=== PATIENT | female | born 1985 | race African-American/Black ===

== ENCOUNTER 2021-04-29 09:01 | Emergency (ER) | payer OTHER ==
[2021-04-29 09:13] VITALS: RESP 18; TEMP 98.7
--- NOTE | 2021-04-29 09:35 | ED ---
Back Pain HPI - General Chief Complaint: Back Pain/Injury Stated Complaint: Back Pain/Injury Time Seen by Provider: 04/29/21 09:20 Source: patient, RN notes reviewed Limitations: no limitations - History of Present Illness Initial Comments: Patient is a 35-year-old female presented to the ED for chronic back pain. Patient states that when she was at home today she walked over to her TV bent over when her back locked up. Patient states that she had to stay there for a while and was eventually able to make it to the couch where she rested for 20 minutes, was then able to drive to ED. Patient states she has known history of degenerative disc disease at L5-S1 and is currently not being treated with any medication for issue. Patient describes severe 10 out of 10 back pain midline at the lumbosacral region. - Related Data Previous Rx's Medication Instructions Recorded Ibuprofen [Motrin] 600 mg PO Q8HR PRN #20 tab 04/29/21 methocarbamoL [Robaxin] 500 mg PO TID PRN #15 tab 04/29/21 predniSONE 50 mg PO DAILY #5 tab 04/29/21 Allergies Allergy/AdvReac Type Severity Reaction Status Date / Time acetaminophen Allergy Rash/Hives Verified 04/29/21 10:43 Review of Systems ROS Statement: Those systems with pertinent positive or pertinent negative responses have been documented in the HPI. ROS Other: All systems not noted in ROS Statement are negative. Past Medical History Additional Past Medical History / Comment(s): lumbar issues History of Any Multi-Drug Resistant Organisms: None Reported Past Surgical History: Hernia Repair, Tubal Ligation Past Psychological History: Bipolar Smoking Status: Never smoker Past Alcohol Use History: None Reported Past Drug Use History: None Reported General Exam Limitations: no limitations General appearance: alert, in no apparent distress Neck exam: Present: normal inspection, full ROM. Absent: tenderness, meningismus, lymphadenopathy Respiratory exam: Present: normal lung sounds bilaterally. Absent: respiratory distress, wheezes, rales, rhonchi, stridor Cardiovascular Exam: Present: regular rate, normal rhythm, normal heart sounds. Absent: systolic murmur, diastolic murmur, rubs, gallop, clicks GI/Abdominal exam: Present: soft, normal bowel sounds. Absent: distended, tenderness, guarding, rebound, rigid Extremities exam: Present: normal inspection, full ROM, normal capillary refill. Absent: tenderness, pedal edema, joint swelling, calf tenderness Back exam: Present: normal inspection, full ROM, tenderness (Severe lumbosacral), paraspinal tenderness. Absent: vertebral tenderness Neurological exam: Present: alert, oriented X3, reflexes normal. Absent: motor sensory deficit Skin exam: Present: warm, dry, intact, normal color. Absent: rash Course Vital Signs 04/29/21 09:10 Temperature 98.7 F Pulse Rate 78 Respiratory 18 Rate Blood Pressure 131/86 O2 Sat by Pulse 100 Oximetry Medical Decision Making - Medical Decision Making X-ray shows degenerative changes L4-L5 L5-S1 with no red flag symptoms. Patient has known of this history. Patient had acute exacerbation of discharged in stable condition she is improved at this time return parameters were discussed. Disposition Clinical Impression: Lumbar degenerative disc disease Disposition: HOME SELF-CARE Condition: Stable Instructions (If sedation given, give patient instructions): Acute Low Back Roland n (ED) Additional Instructions: Please return to the Emergency Department if symptoms worsen or any other concerns. Prescriptions: Ibuprofen [Motrin] 600 mg PO Q8HR PRN #20 tab PRN Reason: Pain predniSONE 50 mg PO DAILY #5 tab methocarbamoL [Robaxin] 500 mg PO TID PRN #15 tab PRN Reason: muscle spasms Is patient prescribed a controlled substance at d/c from ED?: No Referrals: Quinn Pierce MD [Primary Care Provider] - 1-2 days Time of Disposition: 11:10
[2021-04-29] MEDS ORDERED: KETOROLAC 15 MG/ML 1 ML VIAL IM STA (09:36)
--- NOTE | 2021-04-29 10:04 | XR ---
EXAM TYPE: LUMBAR SPINE X RAY SERIES COMPARISON: NONE HISTORY: Pain TECHNIQUE: 4 views are submitted. FINDINGS: Alignment is anatomic. The pedicles are intact. The transverse processes are intact. There is no s pondylolysis or spondylolisthesis. Disc space narrowing L4-5 and L5-S1. IMPRESSION: 1. Degenerative disc disease L4-5 and L5-S1 consider follow-up MRI.
[2021-04-29 11:34] VITALS: BP 134/78; PULSE 84
== END 2021-04-29 11:34 | disposition home or self-care (01) ==
LOC: EC 09:01
DX: M51.36 Other intervertebral disc degeneration, lumbar region (principal); G89.29 Other chronic pain; F31.9 Bipolar disorder, unspecified; Z98.51 Tubal ligation status
CPT/HCPCS: 99283 ×2; 96372 ×2; 72110; J1885

== ENCOUNTER 2021-12-07 03:52 | Emergency (ER) | payer OTHER ==
[2021-12-07 03:59] VITALS: BP 122/82; PULSE 92; RESP 16; TEMP 98.4
[2021-12-07] MEDS ORDERED: CEPHALEXIN 500 MG CAP PO STA (04:17)
[2021-12-07] MEDS ORDERED: CEPHALEXIN 500MG STARTER PACK 4 CAP BTL PO STA (04:17)
--- NOTE | 2021-12-07 04:17 | ED ---
Wound/Laceration HPI - General Chief Complaint: Wound/Laceration Stated Complaint: Right hand Laceration Time Seen by Provider: 12/07/21 04:04 Source: patient Mode of arrival: ambulatory Limitations: no limitations - Related Data Previous Rx's Medication Instructions Recorded Ibuprofen [Motrin] 600 mg PO Q8HR PRN #20 tab 04/29/21 methocarbamoL [Robaxin] 500 mg PO TID PRN #15 tab 04/29/21 predniSONE 50 mg PO DAILY #5 tab 04/29/21 Allergies Allergy/AdvReac Type Severity Reaction Status Date / Time acetaminophen Allergy Rash/Hives Verified 12/07/21 03:56 Review of Systems ROS Statement: Those systems with pertinent positive or pertinent negative responses have been documented in the HPI. ROS Other: All systems not noted in ROS Statement are negative. Past Medical History Additional Past Medical History / Comment(s): lumbar issues History of Any Multi-Drug Resistant Organisms: None Reported Past Surgical History: Hernia Repair, Tubal Ligation Past Psychological History: Bipolar Smoking Status: Never smoker Past Alcohol Use History: None Reported Past Drug Use History: None Reported General Exam Limitations: no limitations Course Vital Signs 12/07/21 03:56 Temperature 98.4 F Pulse Rate 92 Respiratory 16 Rate Blood Pressure 122/82 O2 Sat by Pulse 98 Oximetry Disposition Clinical Impression: Laceration Condition: Good Instructions (If sedation given, give patient instructions): Laceration (ED), Acute Wound Care (ED) Is patient prescribed a controlled substance at d/c from ED?: No Referrals: Quinn Pierce MD [Primary Care Provider] - 1-2 days
--- NOTE | 2021-12-07 04:32 | XR ---
EXAMINATION TYPE: XR hand limited RT DATE OF EXAM: 12/07/2021 COMPARISON: NONE HISTORY: Trauma. Pain TECHNIQUE: 2 views FINDINGS: Metacarpals are intact. I see no fracture nor dislocation. Joint spaces are normal. IMPRESSION: Negative right hand exam. No fracture. No sign of foreign body.
== END 2021-12-07 04:56 ==
LOC: EC 03:52
DX: S61.411A Laceration without foreign body of right hand, initial encounter (principal)

== ENCOUNTER 2022-04-01 14:19 | Emergency (ER) | payer OTHER ==
[2022-04-01 14:34] VITALS: TEMP 98.3
[2022-04-01] MEDS ORDERED: MORPHINE SULFATE 4 MG/ML SYRINGE IVP STA (15:53)
--- NOTE | 2022-04-01 15:54 | US ---
EXAMINATION TYPE: US venous doppler duplex LE LT DATE OF EXAM: 04/01/2022 3:44 PM COMPARISON: NONE CLINICAL HISTORY: swelling and pain. SIDE PERFORMED: TECHNIQUE: The lower extremity deep venous system is examined utilizing real time linear array sonog arsh with graded compression, doppler sonography and color-flow sonography. VESSELS IMAGED: Common Femoral Vein Deep Femoral Vein Greater Saphenous Vein * Femoral Vein Popliteal Vein Small Saphenous Vein * Proximal Calf Veins (* superficial vessels) Left Leg: Negative for DVT Thrombus in GSV at junction of CFV/GSV 7mm from CFV. IMPRESSION: There is some limited superficial vein thrombosis in the long saphenous vein. No deep vei n thrombosis.
[2022-04-01 16:01] LABS: Basophils % (A) 1 %; Eosinophils # (A) 0.2 k/uL (0-0.7); Eosinophils % (A) 2 %; HCT 32.7 % (34.0-46.0); HGB 10.5 gm/dL (11.4-16.0); Lymphocytes # (A) 2.1 k/uL (1.0-4.8); Lymphocytes % (A) 24 %; MCH 27.6 pg (25.0-35.0); MCHC 32.1 g/dL (31.0-37.0); Mean Platelet Volume 7.7; Monocytes # (A) 0.4 k/uL (0-1.0); Monocytes % (A) 4 %; Neutrophils # (A) 5.9 k/uL (1.3-7.7); Neutrophils % (A) 68 %; Platelet Count 391 k/uL (150-450); RDW 13.5 % (11.5-15.5); WBC 8.6 k/uL (3.8-10.6)
[2022-04-01 16:11] LABS: ALT 12 U/L (4-34); AST 17 U/L (14-36); African American GFR (CKD) >90 (>60 ml/min/1.73 sqM); Albumin 4.2 g/dL (3.5-5.0); Alkaline Phosphatase 83 U/L (38-126); Anion Gap 13 mmol/L; Blood Urea Nitrogen 11 mg/dL (7-17); Calcium 9.5 mg/dL (8.4-10.2); Carbon Dioxide 23 mmol/L (22-30); Chloride 103 mmol/L (98-107); Glucose 91 mg/dL (74-99); Non-African American GFR(CKD) >90 (>60 ml/min/1.73 sqM); Potassium 3.6 mmol/L (3.5-5.1); Sodium 139 mmol/L (137-145); Total Bilirubin 0.4 mg/dL (0.2-1.3); Total Protein 7.6 g/dL (6.3-8.2)
--- NOTE | 2022-04-01 16:17 | XR ---
EXAMINATION TYPE: XR ankle complete LT DATE OF EXAM: 04/01/2022 COMPARISON: NONE HISTORY: Pain TECHNIQUE: 3 views FINDINGS: Ankle mortise is anatomic. There is plantar and Achilles calcaneal spurring. No fracture se en. IMPRESSION: Calcaneal spurring. No fracture.
--- NOTE | 2022-04-01 16:18 | XR ---
EXAMINATION TYPE: XR foot complete LT DATE OF EXAM: 04/01/2022 COMPARISON: NONE HISTORY: Pain and swelling TECHNIQUE: 3 views FINDINGS: There is plantar and Achilles calcaneal spurring. Metatarsals are intact. I see no fracture nor dislocation. Joint spaces are normal IMPRESSION: Calcaneal spurring. No fracture seen.
[2022-04-01] MEDS ORDERED: APIXABAN 5 MG TAB PO STA (16:22)
--- NOTE | 2022-04-01 16:47 | ED ---
Extremity Problem HPI - General Chief complaint: Extremity Problem,Nontraumatic Stated complaint: ankle injury Time Seen by Provider: 04/01/22 14:45 Source: patient Mode of arrival: ambulatory Limitations: no limitations - Related Data Previous Rx's Medication Instructions Recorded Ibuprofen [Motrin] 600 mg PO Q8HR PRN #20 tab 04/29/21 methocarbamoL [Robaxin] 500 mg PO TID PRN #15 tab 04/29/21 predniSONE 50 mg PO DAILY #5 tab 04/29/21 Apixaban [Eliquis Starter Pack 5 - 10 mg PO DIRECTED 30 Days 04/01/22 (for VTE)] #1 each Allergies Allergy/AdvReac Type Severity Reaction Status Date / Time acetaminophen Allergy Rash/Hives Verified 04/01/22 14:34 Review of Systems ROS Statement: Those systems with pertinent positive or pertinent negative responses have been documented in the HPI. ROS Other: All systems not noted in ROS Statement are negative. Past Medical History Additional Past Medical History / Comment(s): lumbar issues History of Any Multi-Drug Resistant Organisms: None Reported Past Surgical History: Hernia Repair, Tubal Ligation Past Psychological History: Bipolar Smoking Status: Never smoker Past Alcohol Use History: None Reported Past Drug Use History: None Reported General Exam Limitations: no limitations Course Vital Signs 04/01/22 14:31 Temperature 98.3 F Pulse Rate 83 Respiratory 16 Rate Blood Pressure 138/82 O2 Sat by Pulse 98 Oximetry Medical Decision Making - Lab Data Result diagrams: 04/01/22 15:54 04/01/22 15:54 Lab Results 04/01/22 04/01/22 Range/Units 15:54 15:54 WBC 8.6 (3.8-10.6) k/uL RBC 3.80 (3.80-5.40) m/uL Hgb 10.5 L (11.4-16.0) gm/dL Hct 32.7 L (34.0-46.0) % MCV 86.0 (80.0-100.0) fL MCH 27.6 (25.0-35.0) pg MCHC 32.1 (31.0-37.0) g/dL RDW 13.5 (11.5-15.5) % Plt Count 391 (150-450) k/uL MPV 7.7 Neutrophils % 68 % Lymphocytes % 24 % Monocytes % 4 % Eosinophils % 2 % Basophils % 1 % Neutrophils # 5.9 (1.3-7.7) k/uL Lymphocytes # 2.1 (1.0-4.8) k/uL Monocytes # 0.4 (0-1.0) k/uL Eosinophils # 0.2 (0-0.7) k/uL Basophils # 0.0 (0-0.2) k/uL Sodium 139 (137-145) mmol/L Potassium 3.6 (3.5-5.1) mmol/L Chloride 103 (98-107) mmol/L Carbon Dioxide 23 (22-30) mmol/L Anion Gap 13 mmol/L BUN 11 (7-17) mg/dL Creatinine 0.55 (0.52-1.04) mg/dL Est GFR (CKD-EPI)AfAm >90 (>60 ml/min/1.73 sqM) Est GFR (CKD-EPI)NonAf >90 (>60 ml/min/1.73 sqM) Glucose 91 (74-99) mg/dL Calcium 9.5 (8.4-10.2) mg/dL Total Bilirubin 0.4 (0.2-1.3) mg/dL AST 17 (14-36) U/L ALT 12 (4-34) U/L Alkaline Phosphatase 83 (38-126) U/L Total Protein 7.6 (6.3-8.2) g/dL Albumin 4.2 (3.5-5.0) g/dL TSH 0.992 (0.465-4.680) mIU/L Disposition Clinical Impression: Superficial thrombophlebitis, Left ankle pain, Leg pain, left Disposition: HOME SELF-CARE Condition: Good Instructions (If sedation given, give patient instructions): Superficial Thrombophlebitis (ED) Additional Instructions: Please take medication as directed. Ice and elevate leg. Follow-up with primary care provider in one to 2 days. Please address with them that you have been diagnosed with superficial thrombophlebitis. Your hemoglobin was 10.5 day. With your fatigue symptoms please let your primary care provider know you have low hemoglobin. Return to the emergency department experience new, concerning, or worsening symptoms, including but not limited to chest pain and shortness of breath. Prescriptions: Apixaban [Eliquis Starter Pack (for VTE)] 5 - 10 mg PO DIRECTED 30 Days #1 each Is patient prescribed a controlled substance at d/c from ED?: No Referrals: Quinn Pierce MD [Primary Care Provider] - 1-2 days
[2022-04-01 17:16] VITALS: BP 125/77; PULSE 77; RESP 18
== END 2022-04-01 17:10 | disposition home or self-care (01) ==
LOC: EC 14:19
DX: I80.02 Phlebitis and thrombophlebitis of superficial vessels of left lower extremity (principal); Z88.6 Allergy status to analgesic agent
CPT/HCPCS: 36415; 80053; 84443; 85025; 73610; 73630; 93971; 99284; 96374; J2270

== ENCOUNTER 2022-04-06 14:54 | Emergency (ER) | payer OTHER ==
[2022-04-06 15:18] VITALS: BP 148/87; PULSE 82; RESP 20; TEMP 98.3
[2022-04-06 15:55] LABS: Basophils % (A) 0 %; Eosinophils # (A) 0.1 k/uL (0-0.7); Eosinophils % (A) 2 %; HCT 29.8 % (34.0-46.0); HGB 9.6 gm/dL (11.4-16.0); Hypochromasia Slight; Lymphocytes # (A) 2.2 k/uL (1.0-4.8); Lymphocytes % (A) 30 %; MCHC 32.4 g/dL (31.0-37.0); MCV 86.4 fL (80.0-100.0); Mean Platelet Volume 8.3; Monocytes # (A) 0.3 k/uL (0-1.0); Monocytes % (A) 4 %; Neutrophils # (A) 4.5 k/uL (1.3-7.7); Neutrophils % (A) 62 %; Platelet Count 388 k/uL (150-450); RBC 3.44 m/uL (3.80-5.40); RDW 13.7 % (11.5-15.5); WBC 7.2 k/uL (3.8-10.6)
[2022-04-06 15:57] LABS: Appearance,Urine Clear (Clear); Bilirubin,Urine Negative (Negative); Blood,Urine Negative (Negative); Color,Urine Yellow; Glucose,Urine (UA) Negative (Negative); Ketones,Urine Trace (Negative); Leukocyte Esterase,Urine Trace (Negative); Mucus,Urine Occasional /hpf; Nitrite,Urine Negative (Negative); Protein,Urine Negative (Negative); RBC,Urine 2 /hpf (0-5); Specific Gravity,Urine 1.019 (1.001-1.035); Squamous Epithelial Cell,Urine 6 /hpf (0-4); Urobilinogen,Urine <2.0 mg/dL (<2.0); WBC,Urine 1 /hpf (0-5)
[2022-04-06 16:07] LABS: ALT 11 U/L (4-34); AST 18 U/L (14-36); African American GFR (CKD) >90 (>60 ml/min/1.73 sqM); Albumin 4.3 g/dL (3.5-5.0); Alkaline Phosphatase 80 U/L (38-126); Anion Gap 13 mmol/L; Blood Urea Nitrogen 16 mg/dL (7-17); Calcium 9.3 mg/dL (8.4-10.2); Carbon Dioxide 23 mmol/L (22-30); Chloride 103 mmol/L (98-107); Glucose 84 mg/dL (74-99); Magnesium 1.9 mg/dL (1.6-2.3); Non-African American GFR(CKD) >90 (>60 ml/min/1.73 sqM); Potassium 3.4 mmol/L (3.5-5.1); Sodium 139 mmol/L (137-145); Total Bilirubin 0.3 mg/dL (0.2-1.3); Total Protein 7.5 g/dL (6.3-8.2)
[2022-04-06 16:21] LABS: INR 1.1 (<1.2); Partial Thromboplastin Time 29.8 sec (22.0-30.0); Prothrombin Time 11.4 sec (9.0-12.0)
== END 2022-04-06 17:50 | disposition left against medical advice (07) ==
LOC: EC 14:54
DX: Z53.21 Procedure and treatment not carried out due to patient leaving prior to being seen by health care provider (principal)
CPT/HCPCS: 36415; 80053; 81001; 83735; 84484; 85025; 85379; 85610; 85730; 93005; 99499

== ENCOUNTER 2022-10-26 15:41 | Emergency (ER) | payer OTHER ==
--- NOTE | 2022-10-26 18:56 | ED ---
General Adult HPI - General Source: patient, RN notes reviewed Mode of arrival: ambulatory Limitations: no limitations <Karolyn Galicia - Last Filed: 10/26/22 19:11> <Shay Disla - Last Filed: 10/26/22 23:50> - General Chief complaint: ENT Stated complaint: mouth numbness Time Seen by Provider: 10/26/22 17:44 - History of Present Illness Initial comments: 37-year-old female presents to the emergency department with chief complaint of lip and tip of the tongue tingling. She states that this started 3 days ago. She states it is worse when she is moving around. She states that she gets a "weird" sensation when she walks around at work but it is only when she turns quickly. She also reports cough and runny nose that has been going on for the same amount of time. She is eating and drinking normally. Denies fever, sore throat. Past medical history includes bells palsy and superficial thrombophlebitis. She states that she is on Eliquis. (Karolyn Galicia) - Related Data Previous Rx's Medication Instructions Recorded Ibuprofen [Motrin] 600 mg PO Q8HR PRN #20 tab 04/29/21 methocarbamoL [Robaxin] 500 mg PO TID PRN #15 tab 04/29/21 predniSONE 50 mg PO DAILY #5 tab 04/29/21 Apixaban [Eliquis Starter Pack 5 - 10 mg PO DIRECTED 30 Days 04/01/22 (for VTE)] #1 each Ketorolac [Toradol] 10 mg PO Q8HR PRN #21 tab 04/01/22 Allergies Allergy/AdvReac Type Severity Reaction Status Date / Time acetaminophen Allergy Rash/Hives Verified 10/26/22 15:54 Review of Systems ROS Other: All systems not noted in ROS Statement are negative. <Karolyn Galicia - Last Filed: 10/26/22 19:11> ROS Other: All systems not noted in ROS Statement are negative. <Shay Disla - Last Filed: 10/26/22 23:50> ROS Statement: Those systems with pertinent positive or pertinent negative responses have been documented in the HPI. Past Medical History Past Medical History: Deep Vein Thrombosis (DVT) Additional Past Medical History / Comment(s): lumbar issues DVT History of Any Multi-Drug Resistant Organisms: None Reported Past Surgical History: Hernia Repair, Tubal Ligation Past Psychological History: Bipolar Smoking Status: Never smoker Past Alcohol Use History: None Reported Past Drug Use History: None Reported <Karolyn Galicia - Last Filed: 10/26/22 19:11> General Exam Limitations: no limitations General appearance: alert, in no apparent distress Head exam: Present: atraumatic, normocephalic, normal inspection Eye exam: Present: normal appearance, PERRL, EOMI. Absent: scleral icterus, conjunctival injection, periorbital swelling ENT exam: Present: normal exam, mucous membranes moist Neck exam: Present: normal inspection, full ROM. Absent: tenderness, meningismus, lymphadenopathy Respiratory exam: Present: normal lung sounds bilaterally. Absent: respiratory distress, wheezes, rales, rhonchi, stridor Cardiovascular Exam: Present: regular rate, normal rhythm, normal heart sounds. Absent: systolic murmur, diastolic murmur, rubs, gallop, clicks Extremities exam: Present: normal inspection, full ROM, normal capillary refill. Absent: tenderness, pedal edema, joint swelling, calf tenderness Back exam: Present: normal inspection, full ROM. Absent: tenderness Neurological exam: Present: alert, oriented X3, CN II-XII intact, normal gait Psychiatric exam: Present: normal affect, normal mood Skin exam: Present: warm, dry, intact, normal color. Absent: rash <Karolyn Galicia - Last Filed: 10/26/22 19:11> General appearance: alert, in no apparent distress Head exam: Present: atraumatic, normocephalic, normal inspection Eye exam: Present: normal appearance, PERRL, EOMI. Absent: scleral icterus, co njunctival injection, periorbital swelling ENT exam: Present: normal exam, mucous membranes moist Neck exam: Present: normal inspection. Absent: tenderness, meningismus, lymphadenopathy Respiratory exam: Present: normal lung sounds bilaterally. Absent: respiratory distress, wheezes, rales, rhonchi, stridor Cardiovascular Exam: Present: regular rate, normal rhythm, normal heart sounds. Absent: systolic murmur, diastolic murmur, rubs, gallop, clicks GI/Abdominal exam: Present: soft, normal bowel sounds. Absent: distended, tenderness, guarding, rebound, rigid Extremities exam: Present: normal inspection, full ROM, normal capillary refill. Absent: tenderness, pedal edema, joint swelling, calf tenderness Back exam: Present: normal inspection Neurological exam: Present: alert, oriented X3, CN II-XII intact Psychiatric exam: Present: normal affect, normal mood Skin exam: Present: warm, dry, intact, normal color. Absent: rash <Shay Disla - Last Filed: 10/26/22 23:50> Course <Shay Disla - Last Filed: 10/26/22 23:50> Vital Signs 10/26/22 10/26/22 10/26/22 15:51 16:58 19:00 Temperature 98.5 F 98.2 F 98.2 F Pulse Rate 86 86 101 H Pulse Rate [ Left Supine] Pulse Rate [ Right Sitting] Pulse Rate [ Right Standing] Respiratory 20 20 20 Rate Blood Pressure 132/81 113/77 175/91 Blood Pressure [Left Arm Supine] Blood Pressure [Right Arm Sitting] Blood Pressure [Right Arm Standing] O2 Sat by Pulse 100 99 100 Oximetry 10/26/22 10/26/22 19:20 21:36 Temperature 98.2 F 97.6 F Pulse Rate 78 Pulse Rate [ 101 H Left Supine] Pulse Rate [ 79 Right Sitting] Pulse Rate [ 86 Right Standing] Respiratory 14 Rate Blood Pressure 119/69 Blood Pressure 175/91 [Left Arm Supine] Blood Pressure 134/88 [Right Arm Sitting] Blood Pressure 147/98 [Right Arm Standing] O2 Sat by Pulse 97 Oximetry - Reevaluation(s) Reevaluation #1: 10/26/22 23:49 No change in symptoms here in the ER (Shay Disla) Reevaluation #2: 10/26/22 23:49 patient informed of results and questions Patient is asking for discharge home (Shay Disal) Medical Decision Making <Karolyn Galicia - Last Filed: 10/26/22 19:11> <Shay Disla - Last Filed: 10/26/22 23:50> - Medical Decision Making Was pt. sent in by a medical professional or institution (, PA, SILK SCREEN ETCHER, urgent care, hospital, or usp...) When possible be specific @ -[No] Did you speak to anyone other than the patient for history (EMS, parent, family, police, friend...)? What history was obtained from this source @ -[No] Did you review nursing and triage notes (agree or disagree)? Why? @ -[I reviewed and agree with nursing and triage notes] Were old charts reviewed (outside hosp., previous admission, EMS record, old EKG, old radiological studies, urgent care reports/EKG's, usp records)? Report findings @ -[No old charts were reviewed] Differential Diagnosis (chest pain, altered mental status, abdominal pain women, abdominal pain men, vaginal bleeding, weakness, fever, dyspnea, syncope, headache, dizziness, GI bleed, back pain, seizure, CVA, palpatations, mental health, musculoskeletal)? @ -Covid, paraesthesias, neck strain, viral URI, this list is not all inclusive EKG interpreted by me (3pts min.). @ -[] X-rays interpreted by me (1pt min.). @ -[None done] CT interpreted by me (1pt min.). @ -[None done] U/S interpreted by me (1pt. min.). @ -[None done] What testing was considered but not performed or refused? (CT, X-rays, U/S, labs)? Why? @ -[None] What meds were considered but not given or refused? Why? @ -[None] Did you discuss the management of the patient with other professionals (professionals i.e. , PA, SILK SCREEN ETCHER, lab, RT, psych nurse, social media job titles, foreign exchange services manager, teacher, parachute/combatant diver officer, caseworker protective services)? Give summary @ -[No] Was smoking cessation discussed for >3mins.? @ -[No] Was critical care preformed (if so, how long)? @ -[No] Were there social determinants of health that impacted care today? How? (Homelessness, low income, unemployed, alcoholism, drug addiction, transportation, low edu. Level, literacy, decrease access to med. care, usp, rehab)? @ -[No] Was there de-escalation of care discussed even if they declined (Discuss DNR or withdrawal of care, Hospice)? DNR status @ -[No] What co-morbidities impacted this encounter? (DM, HTN, Smoking, COPD, CAD, Cancer, CVA, ARF, Chemo, Hep., AIDS, mental health diagnosis, sleep apnea, morbid obesity)? @ -[None] Was patient admitted / discharged? Hospital course, mention meds given and route , prescriptions, significant lab abnormalities, going to OR and other pertinent info. @ -[patient presented to the emergency department with chief complaint of tingling to her lips and tip of her tongue x3days. She also reports a cough for the same duration. patient signed out to Dr. Disla. EKG, orthostatics, covid test pending at time of sign out.] Undiagnosed new problem with uncertain prognosis? @ -[No] Drug Therapy requiring intensive monitoring for toxicity (Heparin, Nitro, Insulin, Cardizem)? @ -[No] Were any procedures done? @ -[No] Diagnosis/symptom? @ -[paraesthesias] Acute, or Chronic, or Acute on Chronic? @ -[acute] Uncomplicated (without systemic symptoms) or Complicated (systemic symptoms)? @ -[uncomplicated] Side effects of treatment? @ -[No] Exacerbation, Progression, or Severe Exacerbation? @ -[No] Poses a threat to life or bodily function? How? (Chest pain, [place], [place], pneumonia, PE, COPD, DKA, ARF, appy, cholecystitis, CVA, Diverticulitis, Homicidal, Suicidal, threat to staff... and all critical care pts) @ -[No] (Karolyn Galicia) 37 female to the emergency department for evaluation patient presents today for nonspecific paresthesias may have prior diagnosis of MS. She also complained of headache CT brain is negative, cough acute on chronic chest x-rays negative. Patient can be discharged home (Shay Disla) - Lab Data Lab Results 10/26/22 Range/Units 19:15 Influenza Type A (PCR) Not Detected (Not Detectd) Influenza Type B (PCR) Not Detected (Not Detectd) RSV (PCR) Not Detected (Not Detectd) SARS-CoV-2 (PCR) Not Detected (Not Detectd) Disposition <Karolyn Galicia - Last Filed: 10/26/22 19:11> Is patient prescribed a controlled substance at d/c from ED?: No Time of Disposition: 21:00 <Shay Disla - Last Filed: 10/26/22 23:50> Clinical Impression: Paresthesia, Cough, Dizziness Disposition: HOME SELF-CARE Condition: Stable Instructions (If sedation given, give patient instructions): Multiple Sclerosis (DC), Paresthesia (ED) Additional Instructions: Please return to the Emergency Department if symptoms worsen or any other concerns. Referrals: Quinn Pierce MD [Primary Care Provider] - 1-2 days
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
--- NOTE | 2022-10-26 21:25 | XR ---
EXAMINATION TYPE: XR chest 1V portable DATE OF EXAM: 10/26/2022 COMPARISON: NONE HISTORY: Cough. TECHNIQUE: Single frontal view of the chest is obtained. FINDINGS: There is no suspicious focal air space opacity, pleural effusion, or pneumothorax seen. T he cardiac silhouette size is within normal limits. Overlying breast expanders are seen. The osseous structures are intact. IMPRESSION: No acute pulmonary process.
[2022-10-26 21:46] VITALS: BP 119/69; PULSE 78; RESP 14; TEMP 97.6
== END 2022-10-26 21:46 | disposition home or self-care (01) ==
LOC: EC 15:41
DX: R20.2 Paresthesia of skin (principal); R05.9 Cough, unspecified; R42 Dizziness and giddiness; Z20.822 Contact with and (suspected) exposure to COVID-19; Z88.6 Allergy status to analgesic agent
CPT/HCPCS: 70450; 71045; 87636; 99285

== ENCOUNTER 2022-12-10 03:33 | Emergency (ER) | payer OTHER ==
[2022-12-10 03:42] VITALS: RESP 18
[2022-12-10] MEDS ORDERED: LIDOCAINE 1% INJ 10MG/ML (30 ML VIAL-PF) SQ STA (04:49)
[2022-12-10] MEDS ORDERED: IBUPROFEN 400 MG TAB PO STA (05:04)
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
--- NOTE | 2022-12-10 06:46 | ED ---
Wound/Laceration HPI - General Source: patient Mode of arrival: ambulatory Limitations: no limitations <Johanny Thorpe - Last Filed: 12/10/22 06:47> <Henry Nguyen - Last Filed: 12/10/22 07:11> - General Chief Complaint: Wound/Laceration Stated Complaint: Lip Injury Time Seen by Provider: 12/10/22 05:03 - Related Data Previous Rx's Medication Instructions Recorded Ibuprofen [Motrin] 600 mg PO Q8HR PRN #20 tab 04/29/21 methocarbamoL [Robaxin] 500 mg PO TID PRN #15 tab 04/29/21 predniSONE 50 mg PO DAILY #5 tab 04/29/21 Apixaban [Eliquis Starter Pack 5 - 10 mg PO DIRECTED 30 Days 04/01/22 (for VTE)] #1 each Ketorolac [Toradol] 10 mg PO Q8HR PRN #21 tab 04/01/22 Allergies Allergy/AdvReac Type Severity Reaction Status Date / Time acetaminophen Allergy Rash/Hives Verified 12/10/22 03:37 Review of Systems ROS Other: All systems not noted in ROS Statement are negative. <Johanny Thorpe - Last Filed: 12/10/22 06:47> ROS Other: All systems not noted in ROS Statement are negative. <Henry Nguyen - Last Filed: 12/10/22 07:11> ROS Statement: Those systems with pertinent positive or pertinent negative responses have been documented in the HPI. Past Medical History Past Medical History: Deep Vein Thrombosis (DVT) Additional Past Medical History / Comment(s): lumbar issues DVT History of Any Multi-Drug Resistant Organisms: None Reported Past Surgical History: Hernia Repair, Tubal Ligation Past Psychological History: Bipolar Smoking Status: Never smoker Past Alcohol Use History: None Reported Past Drug Use History: None Reported <Johanny Thorpe - Last Filed: 12/10/22 06:47> General Exam Limitations: no limitations <Johanny Thorpe - Last Filed: 12/10/22 06:47> Course Vital Signs 12/10/22 03:38 Temperature 98.3 F Pulse Rate 111 H Respiratory 18 Rate Blood Pressure 137/98 O2 Sat by Pulse 100 Oximetry Procedures - Laceration Laceration #1 Consent Obtained: verbal consent Indication: laceration Site: lip Size (cm): 3 Description: linear, stellate Depth: simple, single layer Anesthetic Used: lidocaine 1% Anesthesia Technique: local infiltration Amount (mls): 4 Pre-repair: wound explored Type of Sutures: vicryl Size of Sutures: 5-0 Number of Sutures: 4 Technique: simple, interrupted Patient Tolerated Procedure: well, no complications <Johanny Thorpe - Last Filed: 12/10/22 06:47> Disposition <Johanny Thorpe - Last Filed: 12/10/22 06:47> Is patient prescribed a controlled substance at d/c from ED?: No <Henry Nguyen - Last Filed: 12/10/22 07:11> Clinical Impression: Laceration, Facial contusion Disposition: HOME SELF-CARE Condition: Good Instructions (If sedation given, give patient instructions): Care For Your Absorbable Stitches (ED), Laceration (ED), Contusion in Adults (ED), Nasal Fracture (ED) Referrals: Quinn Pierce MD [Primary Care Provider] - 1-2 days
[2022-12-10 07:52] VITALS: BP 133/90; PULSE 93; TEMP 98.6
== END 2022-12-10 07:50 | disposition home or self-care (01) ==
LOC: EC 03:33
DX: S01.81XA Laceration without foreign body of other part of head, initial encounter (principal); Z86.718 Personal history of other venous thrombosis and embolism; Z86.59 Personal history of other mental and behavioral disorders; Z88.8 Allergy status to other drugs, medicaments and biological substances; X58.XXXA Exposure to other specified factors, initial encounter
CPT/HCPCS: 70486; 99283; 12013; J2001